=== PATIENT | female | born 2000 | race Caucasian/White ===

== ENCOUNTER 2025-01-28 14:21 | Outpatient (AMB) | payer OTHER, SELFPAY ==
--- NOTE | 2025-01-28 14:29 | MHC.PC.OV ---
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 Trader Required: No Allergies No Known Allergies Allergy (Verified 01/28/25 14:32) Medication List - Last Reconciled 01/28/25 by Annette Olsen PA-C No Known Home Meds Tobacco use date assessed: 01/28/25 Dental Screening Dental Screen Date: 01/28/25 Did you have a dental visit in the last 12 months?: Yes Did you have a dental problem in the last 6 months where you did not have access to dental care?: No Was dental information given to patient?: Patient has dentist HPI 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 She has a hx of kidney stones Uro: hx of stones around 2011. She sometimes have increased urinary frequency and urgency. No gross hematuria. HEENT: 3 days ago started with a sore throat on the right side. Lot of wants to go she was seen at [place] and was diagnosed with a ?throat infection ?. States she was told it was not struck but needed antibiotics. She says her symptoms are feeling the same. They did do a CAT scan when she was at [place]. Unfortunately, I do not have any results. We have requested records. Pysch: hx of anxiety, depression and ptsd. She was previously treated with prozac, zoloft but did not do well with these medications. 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 1. Little interest or pleasure in doing things: more than half the days 2. Feeling down, depressed, or hopeless: more than half the days 3. Trouble falling or staying asleep, or sleeping too much: more than half the days 4. Feeling tired or having little energy: several days 5. Poor appetite or overeating: several days 6. Feeling bad about yourself - or that you are a failure or have let yourself or your family down: several days 7. Trouble concentrating on things, such as reading the newspaper or watching television: several days 8. Moving or speaking so slowly that other people could have noticed. Or the opposite - being so fidgety or restless that you have been moving around a lot more than usual: several days 9. Thoughts that you would be better off or of hurting yourself in some way: not at all Total score: 11 Source: Developed by Drs. Donal Foster, Claudia Mccann, Brennen Momin and colleagues, with an educational adriana from [employer]. Thrive Questionnaire I am a: Patient What is your living situation today?: I have a steady place to live Within the past 12 months, did the food you bought not last and you didn't have the money to get more?: Never true Within the past 12 months, did you worry whether your food would run out before you got money to buy more?: Sometimes True Do you have trouble paying for medicines?: No Do you have trouble getting transportation to medical appointments?: No Do you have trouble paying your heating and electricity bill?: No Do you have trouble taking care of your child, family member or friend?: No Do you have trouble with day-to-day activities such as bathing, preparing meals, shopping, managing finances, etc.?: No Are you currently unemployed and looking for a job?: No Are you interested in more education?: Yes Please select the resources that you would like help with: None Currently or been in a relationship where the following occur: I choose not to answer THRIVE Score: 1 AUDIT C Alcohol Use Questionnaire (AUDIT-C) 1. How often do you have a drink containing alcohol?: Never Total Score: 0 HOWARD-7 AMB Questionnaire HOWARD-7 Feeling nervous, anxious, or on edge: 1 = Several days Not being able to stop or control worryin = Several days Worrying too much about different things: 1 = Several days Trouble relaxin = Several days Being so restless that it is hard to sit still: 1 = Several days Becoming easily annoyed or irritable: 1 = Several days Feeling afraid as if something awful might happen: 1 = Several days Total HOWARD-7 score (0-4 normal; 5-9 mild; 10-14 moderate; 15-21 severe): 7 Source: Developed by Drs. Donal Foster, Claudia Mccann, Brennen Momin and colleagues, with an educational adriana from [employer]. Physical exam (Primary Care) Vital Signs: Last Vital Signs Temp 98.2 F 01/28/25 14:31 Pulse 97 01/28/25 14:31 Resp 12 01/28/25 14:31 BP 90/52 L 01/28/25 14:31 Pulse Ox 98 01/28/25 14:31 Oxygen Delivery Method Room Air 01/28/25 14:31 BMI result Body Mass Index 22.3 Tobacco/Smoking Status: Tobacco use Status Tobacco use date assessed 01/28/25 01/28/25 14:39 Patient Tobacco Use Status Never used Tobacco 01/28/25 14:39 PHQ-9: PHQ-9 Score PHQ-9: Total score 11 01/28/25 14:51 Currently or been in a relationship where the following occur: I choose not to answer Const Orientation/consciousness: patient oriented x3 HENMT Other: Oral mucosa moist. There is marked erythema noted of the right posterior oropharynx. No exudates. Uvula is midline and not enlarged. Tongue is WNL. There is right cervical lymphadenopathy. Sinuses nontender. Ears: hearing grossly normal bilaterally Neck Thyroid: Thyroid normal Lymphatic: no lymphadenopathy noted Resp Auscultation: clear to auscultation bilaterally Cardio Rate: regular rate Rhythm: regular rhythm Heart sounds: S1 normal heart sound present and S2 normal heart sound present GI Inspection: Yes normal to inspection Palpation (GI): Soft to palpation and Other GI palpation findings present (nontender, no cva tenderness) Auscultation: normoactive bowel sounds Rectal Exam - Female: deferred Skin General skin exam: no rashes or lesions noted Neuro General: patient oriented x3, gait normal and no focal motor deficits Coding Level of Care Code New Pt Level 3 (22799) Complex EM visit Add On G2211 Diagnoses Anxiety with depression F41.8 Post traumatic stress disorder (PTSD) F43.10 Renal stones N20.0 Sore throat J02.9 Assessment & Plan Assessment & Plan (1) Anxiety with depression: Code(s): F41.8 - Other specified anxiety disorders Category: Medical Plan: We will start Lexapro. Discussed risks and benefits and adverse effects of the medication. Short term follow up. Sooner if needed (2) Post traumatic stress disorder (PTSD): Code(s): F43.10 - Post-traumatic stress disorder, unspecified Category: Medical Plan: As above (3) Renal stones: Code(s): N20.0 - Calculus of kidney Category: Medical Plan: Renal ultrasound ordered labs and urine ordered (4) Sore throat: Code(s): J02.9 - Acute pharyngitis, unspecified Plan: Recently treated with amoxicillin but felt that the symptoms returned a week later. Never change her toothbrush. Her throat responded to the antibiotics in the ER rapidly. Rapid strep negative today. I will start her on Augmentin. Advised to discard foods fresh. Short term follow up. Sooner if needed. Patient understands and agrees with the plan. Orders: Orders Complete Blood Count Auto Diff 01/28/25 F41.8 - Other specified anxiety disorders, F43.10 - Post-traumatic stress disorder, unspecified, N20.0 - Calculus of kidney, Z00.00 - Encounter for general adult medical examination without abnormal findings Comprehensive Met. Panel 01/28/25 F41.8 - Other specified anxiety disorders, F43.10 - Post-traumatic stress disorder, unspecified, N20.0 - Calculus of kidney, Z00.00 - Encounter for general adult medical examination without abnormal findings TSH reflex Free T4 01/28/25 F41.8 - Other specified anxiety disorders, F43.10 - Post-traumatic stress disorder, unspecified, N20.0 - Calculus of kidney, Z00.00 - Encounter for general adult medical examination without abnormal findings UA CC w/rflx Micro + Cult 01/28/25 F41.8 - Other specified anxiety disorders, F43.10 - Post-traumatic stress disorder, unspecified, N20.0 - Calculus of kidney, R30.0 - Dysuria, Z00.00 - Encounter for general adult medical examination without abnormal findings Microalbumin, Random (w Creat) 01/28/25 F41.8 - Other specified anxiety disorders, F43.10 - Post-traumatic stress disorder, unspecified, N20.0 - Calculus of kidney, Z00.00 - Encounter for general adult medical examination without abnormal findings US renal BI 01/28/25 F41.8 - Other specified anxiety disorders, F43.10 - Post-traumatic stress disorder, unspecified, N20.0 - Calculus of kidney, Z00.00 - Encounter for general adult medical examination without abnormal findings Lipid Panel 01/28/25 F41.8 - Other specified anxiety disorders, F43.10 - Post-traumatic stress disorder, unspecified, N20.0 - Calculus of kidney, Z00.00 - Encounter for general adult medical examination without abnormal findings Referrals DISTRICT SALES REPRESENTATIVE Referral Z01.419 - Encounter for gynecological examination (general) (routine) without abnormal findings Psychiatry Referral F41.8 - Other specified anxiety disorders, F43.10 - Post-traumatic stress disorder, unspecified Medications: New escitalopram oxalate (Lexapro) 5 mg PO DAILY 90 tabs 0RF amoxicillin-pot clavulanate 875-125 mg 1 tab PO Q12H 20 tabs 0RF
[2025-01-28 14:31] VITALS: BP 90/52; PULSE 97; RESP 12; TEMP 36.8; O2SAT 98; BMI 22.3
--- OUTSIDE RECORDS SUMMARY | 2025-01-28 16:41 | XMS_ITS | Clinical Summary ---
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 Name Role Phone Unavailable Primary Care Provider Unavailabl e Social History Tobacco Use Types Packs/Day Years Used Date Smoking Tobacco: Never Assessed Comments Unknown Sex and Gender Information Value Date Recorded Sex Assigned at Not on file Legal Sex Female 9:48 PM EST Gender Identity Not on file Sexual Orientation Not on file Plan of Treatment Health Maintenance Due Date Last Done Comments HPV Vaccines (1 - 3-dose series) 2013 DTaP,Tdap,and Td Vaccines (1 - Tdap) 2017 Hepatitis B Vaccines (1 of 3 - 19+ 3-dose series) 2017 Cervical Cancer Screening: P ap Smear 09/27/2019 Depression Screening 05/28/2024 COVID-19 Vaccine ( - 2023-2 5 season) 2025 Influenza Vaccine (#1) 2025 HIB Vaccines Aged Out No longer eligi ble based on patient's age to complete this topic Hepatitis A Vaccines Aged Out No long er eligible based on patient's age to complete this topic IPV Vaccines Aged Out No longer eligi ble based on patient's age to complete this topic MMR Vaccines Aged Out No longer eligi ble based on patient's age to complete this topic Meningococcal ACWY Vaccine Aged Out N o longer eligible based on patient's age to complete this topic Meningococcal B Vaccine Aged Out No l onger eligible based on patient's age to complete this topic Pneumococcal Vaccine: Pediat rics (0 to 5 Years) and At-Risk Patients (6 to 49 Years) Aged Out No longer eligible b ased on patient's age to complete this topic RSV Immunization Patients Un praveena 20 months Aged Out No longer eligible b ased on patient's age to complete this topic Varicella Vaccines Aged Out No longer eligible based on patient's age to complete this topic
== END 2025-01-28 15:20 | disposition home or self-care (01) ==
LOC: HO.HMCFM 14:22
PROVIDERS: PCP Physician Assistant; Visit Provider Physician Assistant
DX: F41.8 Other specified anxiety disorders (principal); F43.10 Post-traumatic stress disorder, unspecified; N20.0 Calculus of kidney; J02.9 Acute pharyngitis, unspecified

== ENCOUNTER 2025-01-28 14:21 | Outpatient (REF) | payer OTHER, SELFPAY ==
[2025-01-28 17:37] LABS: MANUAL DIFF FLAG NO
[2025-01-28 18:04] LABS: Hematocrit 34.1 % (37.0-47.0); Hemoglobin 11.3 g/dl (12.0-16.0); Imm Gran Abs Auto 0.05 X10*3/uL (0.00-0.03); Imm Gran Pct Auto 0.5 % (0.0-0.4); Lymphocytes Absolute Auto 1.2 X10*3/uL (1.2-4.9); Mean Corpuscular HGB Conc 33.1 g/dl (31.0-35.0); Mean Corpuscular Hemoglobin 31.0 pg (27.0-33.0); Mean Corpuscular Volume 93.7 fL (80.0-98.0); NRBC Abs Auto 0.000 X10*3/uL (0.0-0.012); NRBC Pct Auto 0.0 /100WBC (0.0-0.2); Platelet Count 223 X10*3/uL (160-400); Red Blood Count 3.64 X10*6/uL (4.20-5.50); White Blood Count 10.9 X10*3/uL (4.8-10.8)
[2025-01-28 18:07] LABS: Microalbum/Creatinine Ratio Ur 18.8 ug/mg cr (<30)
[2025-01-28 18:12] LABS: Appearance Urine Turbid; Glucose Urine UA Negative (Negative); PH 5.5 (5.0-9.0); Specific Gravity - Urine >= 1.030 (1.005-1.025); UMIC TRIGGER UACC YES
[2025-01-28 18:27] LABS: Alanine Aminotransferase 14 U/L (0-31); Albumin Level 4.6 g/dL (3.5-5.0); Alkaline Phosphatase 68 U/L (39-117); Anion Gap 11 (12-20); Aspartate Amino Transferase 21 U/L (5-31); Blood Urea Nitrogen 12 mg/dL (9-16); Calcium 8.9 mg/dL (8.4-10.2); Carbon Dioxide 25 mmol/L (22-29); Chloride 108 mmol/L (96-108); Cholesterol 130 mg/dL (<200); Estimated Glomerular Filt Rate > 60; HDL Cholesterol 56 mg/dL (>40); Potassium 3.9 mmol/L (3.3-5.1); Sodium 140 mmol/L (135-145); Total Protein 7.0 g/dL (6.5-8.0); Triglycerides 67 mg/dL (<150)
== END 2025-01-28 14:22 | disposition home or self-care (01) ==
LOC: HO.WFDLDS 14:21
PROVIDERS: PCP Physician Assistant; Visit Provider Physician Assistant
DX: Z00.00 Encounter for general adult medical examination without abnormal findings (principal); F41.8 Other specified anxiety disorders; F43.10 Post-traumatic stress disorder, unspecified; N20.0 Calculus of kidney; J02.9 Acute pharyngitis, unspecified; R30.0 Dysuria
CPT/HCPCS: 36415; 80053; 80061; 81001; 82043; 82570; 84443; 85025

== ENCOUNTER 2025-02-18 09:32 | Outpatient (AMB) | payer OTHER, SELFPAY ==
--- NOTE | 2025-02-18 09:40 | MHC.PC.OV ---
Vital Signs 02/18/25 09:43 Height 4 ft 10.46 in Weight 106 lb 6 oz BMI 21.9 BP 90/58 L Blood Pressure Location Rt brachial Position Sitting Respiration 12 Pulse 71 Pulse Source Pulse Oximeter Pulse Oximetry (%) 99 Oxygen Delivery Method Room Air Intake Visit Reasons: 3-4 weeks Intake Note: Follow up. Wants to talk about coming of Zoloft. Has been grinding teeth since starting, and is not working. Ex Chef Required: No Allergies No Known Allergies Allergy (Verified 02/18/25 09:40) Medication List - Last Reconciled 02/18/25 by Annette Olsen PA-C escitalopram oxalate (Lexapro) 5 mg PO DAILY Tobacco use date assessed: 02/18/25 Dental Screening Dental Screen Date: 01/28/25 HPI 3-4 weeks HPI Details Pt is a 24 y/o female who presents today for a follow up. Uro: hx of stones around 2011. She sometimes have increased urinary frequency and urgency. No gross hematuria. She is scheduled for an ultrasound in February HEENT: She states that her throat is a lot better from our last visit and that she completed the antibiotics but she still has some degree of tenderness to the left cervical chain. She is still gets some discomfort with swallowing at times. It has been persistent for about 8 weeks. When I 1st saw her she did go to [place] initially when this started and did have a CT of the neck which I do not have the results of. She states that they were making sure she did not have an abscess and they did put her on antibiotics. No difficulty swallowing. She says it feels more like a normal sore throat with some degree of tenderness. Pysch: hx of anxiety, depression and ptsd. She is wondering if she can try the Zoloft again. She did try this in the past but states that she did not give it a fair shot. She states that she was drinking heavily when she tried the Zoloft and she wonders if this would be better for her than Lexapro as she has been diagnosed with PTSD along with anxiety and depression. She was previously treated with prozac, zoloft but did not do well with these medications. 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 She states that for about a year she was drinking heavily but not every day. Her aunt is a speaker at and helped her may cause these changes. She is feeling well and follows with a therapist. Derm: Does report an ingrown left great toenail. It has been a problem for the last few years. 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 She would like to see a rocket engine mechanic. No infection. Recently had a pedicure. GI: She is requesting gluten testing because when she eats a lot of glue and sometimes it bothers her stomach and causes some gas and bloating. When she avoids gluten she does not have these symptoms. She does not want to see GI but wants to just get blood work. 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 [employer] Current occupational exposures/hazards: No Cognitive needs: No Hearing needs: No Vision needs: Yes Questionnaire Thrive Questionnaire Date Thrive assessed: 01/28/25 I am a: Patient What is your living situation today?: I have a steady place to live Within the past 12 months, did the food you bought not last and you didn't have the money to get more?: Never true Within the past 12 months, did you worry whether your food would run out before you got money to buy more?: Sometimes True Do you have trouble paying for medicines?: No Do you have trouble getting transportation to medical appointments?: No Do you have trouble paying your heating and electricity bill?: No Do you have trouble taking care of your child, family member or friend?: No Do you have trouble with day-to-day activities such as bathing, preparing meals, shopping, managing finances, etc.?: No Are you currently unemployed and looking for a job?: No Are you interested in more education?: Yes Please select the resources that you would like help with: None Currently or been in a relationship where the following occur: I choose not to answer THRIVE Score: 1 AUDIT C Alcohol Use Questionnaire (AUDIT-C) 3. How often do you have six or more drinks on one occasion?: Never Total Score: 0 Physical exam (Primary Care) Vital Signs: Last Vital Signs Pulse 71 02/18/25 09:43 Resp 12 02/18/25 09:43 BP 90/58 L 02/18/25 09:43 Pulse Ox 99 02/18/25 09:43 Oxygen Delivery Method Room Air 02/18/25 09:43 BMI result Body Mass Index 21.9 Tobacco/Smoking Status: Tobacco use Status Tobacco use date assessed 02/18/25 02/18/25 09:45 Patient Tobacco Use Status Never used Tobacco 02/18/25 09:45 Thrive Assessment: Date of Thrive Assessment Date Thrive assessed 01/28/25 02/18/25 09:45 Currently or been in a relationship where the following occur: I choose not to answer Const Orientation/consciousness: patient oriented x3 HENMT Ears: hearing grossly normal bilaterally Face and sinus: Yes sinuses nontender Mouth: Normal oral and palatal mucosa present Throat: Yes posterior oropharynx normal and Yes uvula midline Neck Thyroid: Thyroid normal Lymphatic: lymphadenopathy (shotty cervical lymphadenopathy noted) Resp Auscultation: clear to auscultation bilaterally Cardio Rate: regular rate Rhythm: regular rhythm Heart sounds: S1 normal heart sound present and S2 normal heart sound present GI Inspection: Yes normal to inspection Palpation (GI): Soft to palpation and Other GI palpation findings present (nontender, no cva tenderness) Auscultation: normoactive bowel sounds Rectal Exam - Female: deferred Skin General skin exam: no rashes or lesions noted Neuro General: patient oriented x3, gait normal and no focal motor deficits Coding Level of Care Code Est Pt Level 4 (62852) Complex EM visit Add On G2211 Diagnoses Pharyngitis J02.9 Cervical lymphadenopathy R59.0 Ingrown toenail of left foot L60.0 GSE (gluten-sensitive enteropathy) K90.41 Anxiety with depression F41.8 Assessment & Plan Assessment & Plan (1) Pharyngitis: Code(s): J02.9 - Acute pharyngitis, unspecified Category: Medical Plan: We will try an antihistamine Referral to ENT Ultrasound ordered. Labs ordered (2) Cervical lymphadenopathy: Code(s): R59.0 - Localized enlarged lymph nodes Category: Medical Plan: As above (3) Ingrown toenail of left foot: Code(s): L60.0 - Ingrowing nail Category: Medical Plan: Referral to podiatry (4) GSE (gluten-sensitive enteropathy): Code(s): K90.41 - Non-celiac gluten sensitivity Category: Medical Plan: Labs ordered. Offered referral to GI but declines we will try to be gluten free for the next 4-6 weeks. (5) Anxiety with depression: Code(s): F41.8 - Other specified anxiety disorders Category: Medical Plan: We will treat with Zoloft. Discussed risks and benefits and adverse effects of this medication. Short term follow up in 4-6 weeks. Sooner if needed. Orders: Orders US soft tiss head and/or neck Today R59.0 - Localized enlarged lymph nodes Transglutaminase Ab IgG Today K90.41 - Non-celiac gluten sensitivity Endomysial IgA rflx Titer Today K90.41 - Non-celiac gluten sensitivity Immunoglobulin A Today K90.41 - Non-celiac gluten sensitivity Referrals Ear/Nose/Throat Referral J02.9 - Acute pharyngitis, unspecified Podiatry Referral L60.0 - Ingrowing nail Medications: New sertraline (Zoloft) 25 mg PO DAILY 90 tabs 0RF cetirizine (Zyrtec) 10 mg PO DAILY 30 tabs 0RF Discontinued escitalopram oxalate (Lexapro) Discontinued Reason: Doctor's Order 5 mg PO DAILY 90 tabs 0RF
[2025-02-18 09:43] VITALS: BP 90/58; PULSE 71; RESP 12; O2SAT 99; BMI 21.9
--- OUTSIDE RECORDS SUMMARY | 2025-02-18 11:25 | XMS_ITS | Clinical Summary ---
Author Organization [facility] ity Address [address] [place] [address] Care Team Providers Care Consumer Relations Complaint Clerk Name Role Phone Unavailable Primary Care Provider [...]
== END 2025-02-18 10:15 | disposition home or self-care (01) ==
LOC: HO.HMCFM 09:33
PROVIDERS: PCP Physician Assistant; Visit Provider Physician Assistant
DX: J02.9 Acute pharyngitis, unspecified (principal); R59.0 Localized enlarged lymph nodes; L60.0 Ingrowing nail; K90.41 Non-celiac gluten sensitivity; F41.8 Other specified anxiety disorders

== ENCOUNTER 2025-03-11 09:39 | Outpatient (AMB) | payer OTHER, SELFPAY ==
[2025-03-11 09:47] VITALS: BMI 22.2
--- NOTE | 2025-03-11 09:47 | MHC.OFFVIS ---
Vital Signs 03/11/25 09:47 Height 4 ft 11 in Weight 110 lb BMI 22.2 Intake Visit Reasons: ingrown nail Intake Note: Zakia is a 24 year old female who presents to the office today as a new patient referred by her PCP Annette Olsen for an ingrown toenail of her left foot. Pt states the ingrown is located on the medial border of her left hallux. she has had this for about 2 years and she has not tried any treatment for the ingrown. Allergies No Known Allergies Allergy (Verified 03/11/25 09:48) HPI Comments Details: The patient is a 24-year-old female with a PMH as seen below presenting with concerns about an ingrown toenail medial border left hallux. The issue began approximately 2 years ago where intermittently the nail started digging into the skin, causing significant discomfort. In response, the patient attempted to self-treat by removing the painful parts of the nail. She inquires today about the appearance of the nail growth and if there are any abnormalities. The patient reported no purulence or bleeding during the process, although there was a temporary change in nail color to a darker shade, which has since improved. The patient managed the condition by soaking the toe in warm water with Epsom salt, which alleviated the symptoms. She states she experienced pain initially at the time of the partial removal of the nail and kept it bandaged which assisted in pain relief. She denies any other pedal concerns. Denies any N/V/F/C. 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 - Integumentary: Reports temporary dark discoloration of the nail, now resolved. Reports ingrowing of nail, but after at-home treatment, pain has resolved. All systems reviewed & are unremarkable except as noted in HPI and below Physical Exam Vital Signs: BMI result Body Mass Index 22.2 Extrem Other: LLE Focused Physical Exam: Derm: Healed site of at-home PNA medial border of hallux with growth of the nail border noted. No incurvation noted. No edema, erythema, purulence, or drainage noted. No clinical signs of infection. Remaining nails WNL. Skin supple and turgor WNL. Vasc: DP/PT pulses palpable. CFT < 3 secs. Temp gradient warm to warm. Pedal hair present. No varicosities noted. Neuro: Protective sensations grossly intact. MSK: No pain on palpation to the left hallux along the medial nail border. No fluctuance noted. ROM of the forefoot, hindfoot, and ankle WNL. Nonantalgic unassisted gait noted. Results Reviewed Results Reviewed: Laboratory Tests 01/28/25 15:32 WBC 10.9 H Assessment & Plan Assessment & Plan (1) Nail dystrophy: Code(s): L60.3 - Nail dystrophy Category: Medical (2) Nail disorder: Code(s): L60.9 - Nail disorder, unspecified Category: Medical (3) Ingrowing nail, left great toe: Code(s): L60.0 - Ingrowing nail Category: Medical Plan Patient was informed and verbally consented to the use of an ambient scribe for clinic note documentation during this visit. I discussed with the patient that the ingrown toenail appears to be healing well and that her self-care measures were appropriate. I advised her on proper nail care techniques to prevent recurrence and emphasized the importance of monitoring for signs of infection. - Continue monitoring the nail growth and ensure proper nail care to prevent recurrence of ingrown nail. - Advised soaking the toe in warm water with Epsom salt if discomfort arises. - File the nail edges to prevent them from digging into the skin. - Return for evaluation if signs of infection such as redness, pus, or increased pain occur. - Advised patient to wear supportive shoe gear with a wide toe box and avoid ill-fitting shoes. RTC as needed. Coding Level of Care Code New Pt Level 3 (10534) Diagnoses Nail dystrophy L60.3 Nail disorder L60.9 Ingrowing nail, left great toe L60.0 Time Spent (min) 35
--- OUTSIDE RECORDS SUMMARY | 2025-03-11 11:04 | XMS_ITS | Clinical Summary ---
Author Organization [facility] ity Address [address] [place] [address] Care Team Providers Care Dx Board Operator Name Role Phone Unavailable Primary Care Provider [...] 5 season) 2025 Influenza Vaccine (#1) 2025 RSV Immunization Adult Patie nts (1 - 1-dose 75+ series) 2073 HIB Vaccines Aged Out No longer eligi [...]
== END 2025-03-11 10:03 | disposition home or self-care (01) ==
LOC: HO.HPODS 09:40
PROVIDERS: PCP Physician Assistant; Visit Provider Student in an Organized Health Care Education/Training Program
DX: L60.3 Nail dystrophy (principal); L60.9 Nail disorder, unspecified; L60.0 Ingrowing nail
CPT/HCPCS: 99203

== ENCOUNTER 2025-03-17 11:32 | Outpatient (REF) | payer OTHER, SELFPAY ==
--- NOTE | ~2025-03-17 | US_ITS ---
CLINICAL HISTORY: N20.0 - Calculus of kidney US kidneys Comparison: None Findings: Right kidney normal size and echotexture, 9.2 cm length. No hydronephrosis. Normal color flow. A shadowing appearing upper pole echogenic focus measuring up to 9 mm suggest nonobstructing calculus. Left kidney normal size and echotexture, 9.3 cm length. No hydronephrosis. Normal color flow. Impression: 1. No likely nonobstructing calculus on the right. Otherwise, unremarkable mal kidneys This document has been electronically signed by: Morgan Bergman MD on 03/18/2025 19:29:20
== END 2025-03-17 11:33 | disposition home or self-care (01) ==
LOC: HO.HMGCX 11:32
PROVIDERS: PCP Physician Assistant; Visit Provider Physician Assistant
DX: N20.0 Calculus of kidney (principal)
CPT/HCPCS: 76775

== ENCOUNTER → 2025-03-17 11:34 | Outpatient (BNV) | payer OTHER, SELFPAY | PROVIDERS: PCP Physician Assistant; Visit Provider Radiology Diagnostic Radiology | DX: N20.0 Calculus of kidney (principal) | CPT/HCPCS: 76775 ==

== ENCOUNTER 2025-04-08 09:01 | Outpatient (REF) | payer OTHER, SELFPAY ==
--- NOTE | ~2025-04-08 | US_ITS ---
EXAMINATION: US SOFT TISSUE HEAD AND NECK CLINICAL INFORMATION: Left neck tenderness. Lymphadenopathy. COMPARISON: None available. TECHNIQUE: Linear transducer guerra-scale and color Doppler examination with attention to the region of the soft tissues of the left neck in the area of tenderness, level 2. FINDINGS: No solid or cystic soft tissue mass or fluid collection seen. There are no enlarged lymph nodes. There is a normal appearing left level 2 lymph node measuring 1.2 x 0.5 x 1.2 cm. This is normal in size. This demonstrates normal ultrasound morphology and flow. US/US soft tiss head and/or neck IMPRESSION: No abnormality seen by ultrasound. Normal-appearing left level 2 lymph node. Electronically signed by: Jamila Nguyen MD 04/08/2025 09:48 AM FAISAL
--- OUTSIDE RECORDS SUMMARY | 2025-04-08 09:40 | XMS_ITS | Clinical Summary ---
Author Organization [facility] ity Address [address] [place] [address] Care Team Providers Care Supervisor Phosphorus Processing Name Role Phone Unavailable Primary Care Provider [...] Smear 09/27/2019 Depression Screening 05/28/2024 COVID-19 Vaccine (1 - 2024-2 6 season) 2025 Influenza Vaccine (#1) 2025 RSV [...]
== END 2025-04-08 09:02 | disposition home or self-care (01) ==
LOC: HO.HMGCX 09:01
PROVIDERS: PCP Physician Assistant; Visit Provider Physician Assistant
DX: Z23 Encounter for immunization (principal); R59.0 Localized enlarged lymph nodes; F41.8 Other specified anxiety disorders; N20.0 Calculus of kidney
CPT/HCPCS: 76536; 90471; 90656

== ENCOUNTER → 2025-04-08 09:06 | Outpatient (BNV) | payer OTHER, SELFPAY | PROVIDERS: PCP Physician Assistant; Visit Provider Radiology Diagnostic Radiology | DX: R59.0 Localized enlarged lymph nodes (principal) | CPT/HCPCS: 76536 ==

== ENCOUNTER 2025-04-08 14:55 | Outpatient (AMB) | payer OTHER, SELFPAY ==
[2025-04-08 15:07] VITALS: BP 92/54; PULSE 79; RESP 12; TEMP 37.1; O2SAT 99; BMI 22.2
--- NOTE | 2025-04-08 15:07 | MHC.PC.OV ---
Vital Signs 04/08/25 15:07 Height 4 ft 11 in Weight 110 lb BMI 22.2 BP 92/54 L Blood Pressure Location Lt brachial Position Sitting Respiration 12 Pulse 79 Pulse Source Pulse Oximeter Temp 98.7 F Temp Source Oral Pulse Oximetry (%) 99 Oxygen Delivery Method Room Air Intake Visit Reasons: med check, gi sx Allergies No Known Allergies Allergy (Verified 03/11/25 09:48) Tobacco use date assessed: 02/18/25 Dental Screening Dental Screen Date: 01/28/25 HPI med check, gi sx HPI Details Pt is a 24 y/o female who presents today for a follow up. She states since our last visit she is doing very well. Uro: hx of stones and was referred to urology and scheduled 05/15. HEENT: She states that her throat is a lot better from our last visit and back to normal. Had a recent neck ultrasound today which was normal. Denies any swelling. States that she is overall feeling great. Pysch: hx of anxiety, depression and ptsd. She is following with a psychiatrist. She is back on zoloft and doing well. 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 She states that for about a year she was drinking heavily but not every day. Her aunt is a speaker at and helped her may cause these changes. She is feeling well and follows with a therapist. GI: At our last visit she requested gluten testing because when she eats a lot of gluten and sometimes it bothers her stomach and causes some gas and bloating. When she avoids gluten she does not have these symptoms. She does not want to see GI but wants to just get blood work. She is aware that the gold standard is a colonoscopy. 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 [employer] Current occupational exposures/hazards: No Cognitive needs: No Hearing needs: No Vision needs: Yes Questionnaire Thrive Questionnaire Date Thrive assessed: 01/28/25 I am a: Patient What is your living situation today?: I have a steady place to live Within the past 12 months, did the food you bought not last and you didn't have the money to get more?: Never true Within the past 12 months, did you worry whether your food would run out before you got money to buy more?: Sometimes True Do you have trouble paying for medicines?: No Do you have trouble getting transportation to medical appointments?: No Do you have trouble paying your heating and electricity bill?: No Do you have trouble taking care of your child, family member or friend?: No Do you have trouble with day-to-day activities such as bathing, preparing meals, shopping, managing finances, etc.?: No Are you currently unemployed and looking for a job?: No Are you interested in more education?: Yes Please select the resources that you would like help with: None Currently or been in a relationship where the following occur: I choose not to answer THRIVE Score: 1 Physical exam (Primary Care) Vital Signs: Last Vital Signs Temp 98.7 F 04/08/25 15:07 Pulse 79 04/08/25 15:07 Resp 12 04/08/25 15:07 BP 92/54 L 04/08/25 15:07 Pulse Ox 99 04/08/25 15:07 Oxygen Delivery Method Room Air 04/08/25 15:07 BMI result Body Mass Index 22.2 Tobacco/Smoking Status: Tobacco use Status Tobacco use date assessed 02/18/25 04/08/25 15:10 Patient Tobacco Use Status Never used Tobacco 04/08/25 15:10 Thrive Assessment: Date of Thrive Assessment Date Thrive assessed 01/28/25 04/08/25 15:10 Currently or been in a relationship where the following occur: I choose not to answer Const Orientation/consciousness: patient oriented x3 HENMT Ears: hearing grossly normal bilaterally Neck Thyroid: Thyroid normal Lymphatic: no lymphadenopathy noted Resp Auscultation: clear to auscultation bilaterally Cardio Rate: regular rate Rhythm: regular rhythm Heart sounds: S1 normal heart sound present and S2 normal heart sound present GI Inspection: Yes normal to inspection Palpation (GI): Soft to palpation and Other GI palpation findings present (nontender, no cva tenderness) Auscultation: normoactive bowel sounds Rectal Exam - Female: deferred Skin General skin exam: no rashes or lesions noted Neuro General: patient oriented x3, gait normal and no focal motor deficits Office Procedures Flu Questionnaire Does the patient have a severe egg allergy?: No Does the patient have severe life threatening allergies?: No Does the patient have a fever or illness today?: No Has the patient ever had Guillain-[place] Syndrome?: No Has the patient ever had any past reaction to a flu shot?: No Immunizations Fluarix [id number] (PF) 45 mcg (15 mcg x 3)/0.5 mL IM syringe Performing Provider: Annette Olsen PA-C Performing Location: [facility] Administered by: Jacey Blank CMA on 04/09/25 08:47 Dose Route Admin Location Dispensed Lot Number Expiration Date NDC Logistics Management Specialist 0.5 mL IM Left Deltoid 0.5 mL [id number] 11/24/25 50141-725-39 [employer] VIS Given Date VIS Provided VIS Publication Date 04/08/25 Single Vaccine 24 Eligibility Eligibility Date Funding Source Not [facility] Eligible 04/09/25 Private Results Reviewed Results Reviewed: Laboratory Tests 01/28/25 15:32 WBC 10.9 H RBC 3.64 L Hgb 11.3 L Hct 34.1 L Plt Count 223 Sodium 140 Potassium 3.9 Chloride 108 Carbon Dioxide 25 Anion Gap 11 L BUN 12 Creatinine 0.86 Estimated GFR > 60 Random Glucose 97 Calcium 8.9 AST 21 ALT 14 Triglycerides 67 Cholesterol 130 LDL Cholesterol, Calc 61 HDL Cholesterol 56 TSH 0.37 US/US soft tiss head and/or neck IMPRESSION: No abnormality seen by ultrasound. Normal-appearing left level 2 lymph node. Findings: Right kidney normal size and echotexture, 9.2 cm length. No hydronephrosis. Normal color flow. A shadowing appearing upper pole echogenic focus measuring up to 9 mm suggest nonobstructing calculus. Left kidney normal size and echotexture, 9.3 cm length. No hydronephrosis. Normal color flow. Impression: 1. No likely nonobstructing calculus on the right. Otherwise, unremarkable mal kidneys Coding Level of Care Code Est Pt Level 4 (23896) Complex EM visit Add On G2211 Diagnoses Anxiety with depression F41.8 Renal stones N20.0 Cervical lymphadenopathy R59.0 Assessment & Plan Assessment & Plan (1) Anxiety with depression: Code(s): F41.8 - Other specified anxiety disorders Category: Medical Plan: Doing well with Zoloft and following with her psychiatrist. Recently increased dose to 50 mg which appears to be effective (2) Renal stones: Code(s): N20.0 - Calculus of kidney Category: Medical Plan: Has an appointment with Urology. No flank pain or blood in the urine (3) Cervical lymphadenopathy: Code(s): R59.0 - Localized enlarged lymph nodes Category: Medical Plan: Resolved. Ultrasound reassuring Plan Flu shot today Orders: Orders Influenza [id number] Immunization 04/08/25 Z23 - Encounter for immunization
--- OUTSIDE RECORDS SUMMARY | 2025-04-08 18:17 | XMS_ITS | Clinical Summary ---
Author Organization [facility] ity Address [address] [place] [address] Care Team Providers Care Flat Surfacer Jewel Name Role Phone Unavailable Primary Care Provider [...]
--- OUTSIDE RECORDS SUMMARY | 2025-04-08 18:17 | XMS_ITS | Data Portability ---
Author Organization [place] - [facility], [facility] Address [address] [place] [address] Assessment Encounter Date Assessment Date Assessment LastModified by Organization Details LastModified Time 11/29/2017 11/29/2017 dysuria- will send urine to lab to ro infection jyunis Not available 11/29/2017 13:33:12 12/03/2017 12/03/2017 Dysuria - +urine dip partially c/w UTI but has vaginitis as well, sent u/a and urine cx, neg Urine GC/Chlam few days ago so not repeated, hydration/cranb erry juice, do not hold urine, post coital voiding discussed, call pt cell regardless, f/u prn; Vaginitis - appears Candidal, sent affirm, Diflucan x 3 d, Monistat 3, f/u prn, preventitive measures; Urinary frequency - has been drinking more water lately, no enuresis or need to get up overnight to urinate, U HCG neg, using condoms discussed, reassured cristina Not available 12/03/2017 13:34:48 03/26/2018 03/26/2018 Fatigue/Muscle and jt Pains/Wt Loss (but did regain with inc calories)/Irreg Menses/Hair loss - very concerning sxs overall, broad differential, has become vegetarian and not taking mvit so instructed to do so immediately, as well as Ca supplement with vit D since has progestin IUD in place, will do screening labs for hormonal causes/metaboli c causes/thyroid/ anemia/Lyme/rhe um causes, call pt with results; Sadness - not full depression but depressive mood, discussed that this may be playing role in her sxs, to find new therapist and in [place] area so will look there, no SI/HI, in homosexual relationship and has good supports with partner, family aware but not as supportive as pt would like which is one reason why she is sad, support given, f/u prn; [employer] - irreg menses, likely all tied to above, however has progestin IUD in place that may be etiology for some of her sxs and pt may need to have this removed, will get lab results first before recommending this kcamera Not available 03/26/2018 15:18:20 12/25/2018 12/25/2018 PI - in and Buttock areas, diffuse, Medrol dose pack as directed, avoidance, f/u prn; Fatigue/numbnes s/weakness/abd pain - intermittent sxs for months, discussed that likely all related to stress, just started seeing therapist Jacey so will continue, discussed options for finding psych provider via psychology today/[facility]/Murali Ayala, focusing on taking care of herself - eating well/sleeping well/exercising regularly, dec stress in her life, finding goal and making plan to get there, f/u 6 wks, also needs to schedule [facility] since very overdue kcamera Not available 12/25/2018 14:18:43 Plan of Treatment Reminders Order Date Submit Date Provider Last Modified By Organization Details Last Modified Time Details Appointments None recorded . Lab dhea-sul fate, serum 2017 018 ASTRID [facility] (Centralized Electronic Ordering - All Locations), Patient Can Go To The Location Of Their Choice, 8 00:12:37 testoste maximo free, serum 2017 018 ASTRID [facility] (Centralized Electronic Ordering - All Locations), Patient Can Go To The Location Of Their Choice, 8 09:45:56 CBC w/ auto diff 2017 018 ASTRID [facility] (Centralized Electronic Ordering - All Locations), Patient Can Go To The Location Of Their Choice, 8 20:58:03 ESR (erythro cyte sediment ation rate), blood 2017 ASTRID [facility] (Centralized Electronic Ordering - All Locations), Patient Can Go To The Location Of Their Choice, 21:48:08 tissue transglu taminase iga Ab, serum 2017 ASTRID [facility] (Centralized Electronic Ordering - All Locations), Patient Can Go To The Location Of Their Choice, 10:55:51 ferritin , serum or plasma 2017 ASTRID [facility] (Centralized Electronic Ordering - All Locations), Patient Can Go To The Location Of Their Choice, 23:37:37 TSH + free T4, serum 2017 [email or web address] [facility] (Centralized Electronic Ordering - All Locations), Patient Can Go To The Location Of Their Choice, 10:20:19 CMP, serum or plasma 2017 ASTRID [facility] (Centralized Electronic Ordering - All Locations), Patient Can Go To The Location Of Their Choice, 00:37:54 pregnanc y test, urine 2017 [facility], [address] [place] [address], [id number], 14:19:09 urinalys is, complete 2017 ASTRID [facility] (Centralized Electronic Ordering - All Locations), Patient Can Go To The Location Of Their Choice, 04:16:43 lh + FSH, serum 2017 [email or web address] [facility] (Centralized Electronic Ordering - All Locations), Patient Can Go To The Location Of Their Choice, 09:13:41 prealbum in, serum 2017 ASTRID [facility] (Centralized Electronic Ordering - All Locations), Patient Can Go To The Location Of Their Choice, 00:37:55 urinalys is, dipstick 2017 [facility], [address] [place] [address], [phone], 8 14:19:09 vitamin D, 25-hydro xy, total, serum 2017 018 ASTRID [facility] (Centralized Electronic Ordering - All Locations), Patient Can Go To The Location Of Their Choice, 8 23:44:11 vitamin D, 1,25-dih ydroxy, serum 2017 018 vick [facility] (Centralized Electronic Ordering - All Locations), Patient Can Go To The Location Of Their Choice, 8 10:21:47 borrelia burgdorf caesar C6 Ab, QL, serum 2017 018 ASTRID [facility] (Centralized Electronic Ordering - All Locations), Patient Can Go To The Location Of Their Choice, 8 09:37:21 rf (rheumat oid factor), serum 2017 018 ASTRID [facility] (Centralized Electronic Ordering - All Locations), Patient Can Go To The Location Of Their Choice, 8 23:59:44 CÉSAR (antinuc lear antibodi es) screen, serum 2017 018 ASTRID [facility] (Centralized Electronic Ordering - All Locations), Patient Can Go To The Location Of Their Choice, 8 07:40:40 urinalys is, dipstick [address] [facility], [address] [place] [address], [place], [address], 8 13:18:25 culture, urine 2017 018 ASTRID [facility] (Centralized Electronic Ordering - All Locations), Patient Can Go To The Location Of Their Choice, 8 07:22:47 urinalys is, complete 2017 018 ASTRID [facility] (Centralized Electronic Ordering - All Locations), Patient Can Go To The Location Of Their Choice, 8 15:06:49 pregnanc y test, urine 2017 018 [facility], [address] [place] [address], [phone], 8 13:20:12 bacteria l vaginosi s + vaginiti s panel, vaginal 2017 018 moni [facility] (Centralized Electronic Ordering - All Locations), Patient Can Go To The Location Of Their Choice, [id number] 8 13:01:08 urinalys is, dipstick 2017 018 [facility], [address] [place] [address], [phone], 8 13:22:54 culture, urine 2017 018 LOUVALE [facility] (Centralized Electronic Ordering - All Locations), Patient Can Go To The Location Of Their Choice, [id number] 8 08:05:44 CT + NG DNA, PCR, urine 2017 018 [facility], [address] [place] [address], [phone], 8 16:14:27 urinalys is, complete 2017 018 [place] [facility] (Centralized Electronic Ordering - All Locations), Patient Can Go To The Location Of Their Choice, [id number] 8 01:57:25 Referral None recorded . Procedures None recorded . Surgeries None recorded . Imaging None recorded . Medication Orders Medrol (Alberto) 4 mg tablets in a dose pack 2018 019 INTERFACE [id number], [address] [place], [address], 9 13:17:59 Diflucan 200 mg tablet 2017 018 ep[place]ottano [id number], [address] [place], [address], 10/30/201 8 14:01:51 Patient TargetsNo targets recorded. Patient InstructionsNo instructions recorded. Reason for Referral None Reported. Results Created Date Observation Date Name Description Value Unit Range Abnormal Flag Note LastModifiedBy Organization Detail LastModifiedTime 12/04/19 18 12/03/2017 urina lysis , dipst ick Leukocytes 2+ Not Available [facility] [address] [place], [address], 12/03/2017 12:47:21 12/04/19 18 12/03/2017 urina lysis , dipst ick Nitrite negati ve Not Available [facility] [address] [place] [address], [phone], 12/03/2017 12:47:21 12/04/1912/03/2017 urina lysis , dipst ick Protein Trace Not Available [address], [address], 12/03/2017 12:47:21 12/04/1912/03/2017 urina lysis , dipst ick pH 8.5 Not Available [address], [address], 12/03/2017 12:47:21 12/04/1912/03/2017 urina lysis , dipst ick Blood Negati ve Not Available [address], [address], 12/03/2017 12:47:21 12/04/1912/03/2017 urina lysis , dipst ick Ketone Negati ve Not Available [address], [address], 12/03/2017 12:47:21 12/04/1912/03/2017 urina lysis , dipst ick Glucose Negati ve Not Available [address], [address], 12/03/2017 12:47:21 11/30/1911/30/2017 urina lysis , compl ete appear/color LIGHT YELLO W HAZY Not Available [facility] (Centralized Electronic Ordering - All Locations) Patient Can Go To The Location Of Their Choice, 11/30/2017 01:57:24 11/30/1911/30/2017 urina lysis , compl ete sp. gravity 1.011 (1.002 -1.030 ) Not Available [facility] (Centralized Electronic Ordering - All Locations) Patient Can Go To The Location Of Their Choice, 11/30/2017 01:57:24 11/30/1911/30/2017 urina lysis , compl ete urine pH 7.0 (4.0-8 .0) Not Available [facility] (Centralized Electronic Ordering - All Locations) Patient Can Go To The Location Of Their Choice, 11/30/2017 01:57:24 11/30/1911/30/2017 urina lysis , compl ete urine albumin NEGATI VE (neg) Not Available [facility] (Centralized Electronic Ordering - All Locations) Patient Can Go To The Location Of Their Choice, 11/30/2017 01:57:24 11/30/1911/30/2017 urina lysis , compl ete urine glucose NEGATI VE (neg) Not Available [facility] (Centralized Electronic Ordering - All Locations) Patient Can Go To The Location Of Their Choice, 11/30/2017 01:57:24 11/30/1911/30/2017 urina lysis , compl ete urine ketones NEGATI VE (neg) Not Available [facility] (Centralized Electronic Ordering - All Locations) Patient Can Go To The Location Of Their Choice, 11/30/2017 01:57:24 11/30/1911/30/2017 urina lysis , compl ete urine bilirubin NEGATI VE (neg) Not Available [facility] (Centralized Electronic Ordering - All Locations) Patient Can Go To The Location Of Their Choice, 11/30/2017 01:57:24 11/30/1911/30/2017 urina lysis , compl ete urine hemoglobn 1+ (neg) abnormal Not Available [facility] ([facility] Order[facility] - All Locations) Patient Can Go To The Location Of Their Choice, 11/30/2017 01:57:24 11/30/1911/30/2017 urina lysis , compl ete urine nitrite NEGATI VE (neg) Not Available [facility] (Centralized Electronic Ordering - All Locations) Patient Can Go To The Location Of Their Choice, 11/30/2017 01:57:24 11/30/1911/30/2017 urina lysis , compl ete urine leukocyte 1+ (neg) abnormal Not Available [facility] ([facility] Order[facility] - All Locations) Patient Can Go To The Location Of Their Choice, 11/30/2017 01:57:24 11/30/1911/30/2017 urina lysis , compl ete urobilinogen NORMAL mg/dL (norm) Not Available [facility] - [facility] Locations) Patient Can Go To The Location Of Their Choice, 11/30/2017 01:57:24 11/30/1911/30/2017 urina lysis , compl ete urine WBC's 2 /hpf (0-5) Not Available [facility] ([facility] Ordering - All Locations) Patient Can Go To The Location Of Their Choice, 11/30/2017 01:57:24 11/30/1911/30/2017 urina lysis , compl ete urine RBC's 2 /hpf (<3) Not Available [facility] Order[facility] - All Locations) Patient Can Go To The Location Of Their Choice, 11/30/2017 01:57:24 11/30/1911/30/2017 urina lysis , compl ete bacteria SLIGHT hpf (neg) abnormal Not Available [facility] (Centralized Electronic Ordering - All Locations) Patient Can Go To The Location Of Their Choice, 11/30/2017 01:57:24 11/30/1911/30/2017 urina lysis , compl ete mucus SLIGHT /lpf Not Available [facility] (Centralized Electronic Ordering - All Locations) Patient Can Go To The Location Of Their Choice, 11/30/2017 01:57:24 11/30/1911/30/2017 urina lysis , compl ete squamous epith 10 /hpf Not Available [facility] ([facility] Order[facility] - All Locations) Patient Can Go To The Location Of Their Choice, 11/30/2017 01:57:24 11/30/19 18 11/30/2017 urina lysis , compl ete amorphous crystals SLIGHT /hpf Not Available [facility] ([facility] Order[facility] - All Locations) Patient Can Go To The Location Of Their Choice, [id number] 11/30/2017 01:57:24 11/30/19 18 11/30/2017 CT + NG DNA, PCR, urine urine chlamydia amp probe (neg) NEGAT JALIL No Chlam ydia Trach omati s RNA detec rey in this patie nt's sampl e (REFE RENCE RANGE /NORM AL VALUE : NOT DETEC REY) Note: This test uses trans cript ion- media rey ampli ficat ion metho d to detec t rRNA from C. Trach omati s Not Available [facility] (Centralized Electronic Ordering - All Locations) Patient Can Go To The Location Of Their Choice, [id number] 11/30/2017 11:36:58 11/30/19 18 11/30/2017 CT + NG DNA, PCR, urine urine GC amp probe (neg) NEGAT JALIL No Neiss eria Gonor rhoea e RNA detec rey in this patie nt's sampl e (REFE RENCE RANGE /NORM AL VALUE : NOT DETEC REY) NOTE: This test uses trans cript ion-m ediat ed ampli ficat ion metho d to detec t rRNA from N.Obey orrho eae. A negat jalil resul t does not precl ude infec tion. In the case of a negat jalil urine resul t, testi ng of an endoc ervic al(fe male) or ureth ral (male ) speci men is recom efren d if there is high clini rocael suspi cion of infec tion. Due to very high sensi tivit y of Nucle ic Acid Ampli ficat ion Test, false posit jalil resul ts may occur . There fore, speci men handl ing is extre damian impor tant. In patie nts in whom the disea se is unlik mert, addit ional sampl e for testi ng shoul d be consi dered after an initi al posit jalil resul t. The perfo rmanc e carline cteri stics of this test have not been evalu ated in child krunal. The Aptim a Combo 2 assay is not inten ded for the evalu ation of suspe cted sexua l abuse or for other medic o-leg al indic ation s. The order ing provi praveena shoul d asses s if the patie nt had conse nsual sex witho ut risk of sexua l abuse . [facility] lt [facility] if neede d. Conta ct phone numbe r [phone]. Thera peuti c failu re or succe ss canno t be deter mined with the Aptim a Combo 2 assay since nucle ic acid may persi st follo wing appro priat e antim icrob ial thera py. The Cente rs for Disea se Contr ol and Preve ntion ([facility]) recom mends confi rmato ry retes ting using cultu re or a diffe rent nucle ic acid ampli ficat ion test when posit jalil resul ts occur , if indic ated. Not Available [facility] (Centralized Electronic Ordering - All Locations) Patient Can Go To The Location Of Their Choice, [id number] 11/30/2017 11:36:58 11/30/19 18 11/29/2017 cultu re, urine specimen description URINE Not Available [facility] - [facility] Locations) Patient Can Go To The Location Of Their Choice, [id number] 12/01/2017 08:05:44 11/30/1911/29/2017 cultu re, urine special requests NONE Not Available [facility] ([facility] Ordering - All Locations) Patient Can Go To The Location Of Their Choice, [id number] 12/01/2017 08:05:44 11/30/1912/01/2017 cultu re, urine culture Mixed bacter ial jemma, indica tive of urogen ital contam inatio n. Not Available [facility] (Centralized Electronic Ordering - All Locations) Patient Can Go To The Location Of Their Choice, [id number] 12/01/2017 08:05:44 11/30/1912/01/2017 cultu re, urine report status FINAL 2017 Not Available [facility] (Centralized Electronic Ordering - All Locations) Patient Can Go To The Location Of Their Choice, [id number] 12/01/2017 08:05:44 11/30/19 18 11/29/2017 urina lysis , dipst ick Leukocytes 2+ Not Available [facility] [address] [place], [address], 11/29/2017 12:57:04 11/30/19 18 11/29/2017 urina lysis , dipst ick Nitrite negati ve Not Available [facility] [address] [place], [address], 11/29/2017 12:57:04 11/30/19 18 11/29/2017 urina lysis , dipst ick Protein Trace Not Available [facility] [address] [place], [address], 11/29/2017 12:57:04 11/30/19 18 11/29/2017 urina lysis , dipst ick pH 6.5 Not Available [facility] [address] [place] [address], [address], 11/29/2017 12:57:04 11/30/19 18 11/29/2017 urina lysis , dipst ick Blood Negati ve Not Available [facility] [address] [place] [address], [address], 11/29/2017 12:57:04 11/30/19 18 11/29/2017 urina lysis , dipst ick Ketone Negati ve Not Available [facility] [address] [place] [address], [address], 11/29/2017 12:57:04 11/30/19 18 11/29/2017 urina lysis , dipst ick Glucose Negati ve Not Available [facility] [address] [place] [address], [address], 11/29/2017 12:57:04 12/04/19 18 12/04/2017 bacte rial vagin osis panel , david al celina species, direct probe POSITI VE Not Available [facility] (Centralized Electronic Ordering - All Locations) Patient Can Go To The Location Of Their Choice, 12/04/2017 10:41:18 12/04/1912/04/2017 bacte rial vagin osis panel , vagin al gardnerella vaginalis, direct POSITI VE Not Available [facility] (Centralized Electronic Ordering - All Locations) Patient Can Go To The Location Of Their Choice, 12/04/2017 10:41:18 12/04/1912/04/2017 bacte rial vagin osis panel , vagin al trichomonas vaginalis, direct NEGATI VE Not Available [facility] (Centralized Electronic Ordering - All Locations) Patient Can Go To The Location Of Their Choice, 12/04/2017 10:41:18 12/04/1912/04/2017 urina lysis , compl ete appear/color YELLO W CLOUD Y Not Available [facility] (Centralized Electronic Ordering - All Locations) Patient Can Go To The Location Of Their Choice, 12/04/2017 15:06:49 12/04/1912/04/2017 urina lysis , compl ete sp. gravity 1.010 (1.002 -1.030 ) Not Available [facility] (Centralized Electronic Ordering - All Locations) Patient Can Go To The Location Of Their Choice, 12/04/2017 15:06:49 12/04/1912/04/2017 urina lysis , compl ete urine pH 8.0 (4.0-8 .0) Not Available [facility] (Centralized Electronic Ordering - All Locations) Patient Can Go To The Location Of Their Choice, 12/04/2017 15:06:49 12/04/1912/04/2017 urina lysis , compl ete urine albumin NEGATI VE (neg) Not Available [facility] (Centralized Electronic Ordering - All Locations) Patient Can Go To The Location Of Their Choice, 12/04/2017 15:06:49 12/04/1912/04/2017 urina lysis , compl ete urine glucose NEGATI VE (neg) Not Available [facility] (Centralized Electronic Ordering - All Locations) Patient Can Go To The Location Of Their Choice, 12/04/2017 15:06:49 12/04/1912/04/2017 urina lysis , compl ete urine ketones NEGATI VE (neg) Not Available [facility] (Centralized Electronic Ordering - All Locations) Patient Can Go To The Location Of Their Choice, [facility] 12/04/2017 15:06:49 12/04/1912/04/2017 urina lysis , compl ete urine bilirubin NEGATI VE (neg) Not Available [facility] ([facility]ized Electronic Ordering - All Locations) Patient Can Go To The Location Of Their Choice, [facility] 12/04/2017 15:06:49 12/04/1912/04/2017 urina lysis , compl ete urine hemoglobn NEGATI VE (neg) Not Available [facility] ([facility]ized Electronic Ordering - All Locations) Patient Can Go To The Location Of Their Choice, [id number] 12/04/2017 15:06:49 12/04/1912/04/2017 urina lysis , compl ete urine nitrite NEGATI VE (neg) Not Available [facility] ([facility]ized Electronic Ordering - All Locations) Patient Can Go To The Location Of Their Choice, [facility] 12/04/2017 15:06:49 12/04/1912/04/2017 urina lysis , compl ete urine leukocyte (neg) abnormal TRACE RESUL TS CHECK ED Not Available [facility] ([facility]ized [facility] Ordering - All Locations) Patient Can Go To The Location Of Their Choice, [id number] 12/04/2017 15:06:49 12/04/1912/04/2017 urina lysis , compl ete urobilinogen NORMAL mg/dL (norm) Not Available [facility] - [facility]ations) Patient Can Go To The Location Of Their Choice, [facility] 12/04/2017 15:06:49 12/04/1912/04/2017 urina lysis , compl ete urine WBC's NONE SEEN /hpf (0-5) Not Available [facility] ([facility] Ordering - All Locations) Patient Can Go To The Location Of Their Choice, [id number] 12/04/2017 15:06:49 12/04/1912/04/2017 urina lysis , compl ete urine RBC's NONE SEEN /hpf (<3) Not Available [facility] ([facility]ized Electronic Ordering - All Locations) Patient Can Go To The Location Of Their Choice, [facility] 12/04/2017 15:06:49 12/04/1912/04/2017 urina lysis , compl ete mucus SLIGHT /lpf Not Available [facility] (Centralized Electronic Ordering - All Locations) Patient Can Go To The Location Of Their Choice, [facility] 12/04/2017 15:06:49 12/04/19 18 12/04/2017 urina lysis , compl ete squamous epith 7 /hpf Not Available [facility] Order[facility] - All Locations) Patient Can Go To The Location Of Their Choice, [facility] 12/04/2017 15:06:49 12/04/19 18 12/04/2017 urina lysis , compl ete amorphous crystals SLIGHT /hpf Not Available [facility] Order[facility] - All Locations) Patient Can Go To The Location Of Their Choice, [facility] 12/04/2017 15:06:49 12/04/19 18 12/04/2017 cultu re, urine specimen description URINE Not Available [facility] - [facility] Locations) Patient Can Go To The Location Of Their Choice, [facility] 12/05/2017 07:22:47 12/04/19 18 12/04/2017 cultu re, urine special requests NONE Not Available [facility] Order[facility] - All Locations) Patient Can Go To The Location Of Their Choice, [facility] 12/05/2017 07:22:47 12/04/19 18 12/04/2017 cultu re, urine culture NO GROWTH Not Available [facility] ([facility] Ordering - All Locations) Patient Can Go To The Location Of Their Choice, [facility] 12/05/2017 07:22:47 12/04/19 18 12/05/2017 cultu re, urine report status FINAL 2017 Not Available [facility] ([facility] Ordering - All Locations) Patient Can Go To The Location Of Their Choice, [facility] 12/05/2017 07:22:47 12/04/19 18 12/03/2017 pregn chris test, urine Result negati ve Not Available [facility] [address] [place] [address], [place], [address], 12/03/2017 13:08:58 03/26/20 18 03/26/2018 CBC w/ auto diff WBC 5.9 K/mm3 (4.0-1 1.0) Not Available [facility] ([facility]ized Electronic Ordering - All Locations) Patient Can Go To The Location Of Their Choice, 03/26/2018 20:58:03 03/26/20 18 03/26/2018 CBC w/ auto diff RBC 4.07 M/mm3 (4.20- 5.40) low Not Available [facility] ([facility]ized Electronic Ordering - All Locations) Patient Can Go To The Location Of Their Choice, 03/26/2018 20:58:03 03/26/20 18 03/26/2018 CBC w/ auto diff HGB 12.7 gm/dL (11.7- 15.5) Not Available [facility] ([facility]ized Electronic Ordering - All Locations) Patient Can Go To The Location Of Their Choice, 03/26/2018 20:58:03 03/26/20 18 03/26/2018 CBC w/ auto diff HCT 39.9 % (35.7- 45.8) Not Available [facility] ([facility]ized Electronic Ordering - All Locations) Patient Can Go To The Location Of Their Choice, 03/26/2018 20:58:03 03/26/20 18 03/26/2018 CBC w/ auto diff MCV 98.0 fL (80.0- 100.0) Not Available [facility] ([facility]ized [facility] Ordering - All Locations) Patient Can Go To The Location Of Their Choice, 03/26/2018 20:58:03 03/26/20 18 03/26/2018 CBC w/ auto diff MCH 31.2 pg (27.0- 34.0) Not Available [facility] (Centralized Electronic Ordering - All Locations) Patient Can Go To The Location Of Their Choice, 03/26/2018 20:58:03 03/26/2003/26/2018 CBC w/ auto diff MCHC 31.8 g/dL (33.0- 37.0) low Not Available [facility] ([facility]ized Electronic Ordering - All Locations) Patient Can Go To The Location Of Their Choice, 03/26/2018 20:58:03 03/26/20 18 03/26/2018 CBC w/ auto diff plt 264 K/mm3 (150-4 60) Not Available [facility] (Centralized Electronic Ordering - All Locations) Patient Can Go To The Location Of Their Choice, 03/26/2018 20:58:03 03/26/20 18 03/26/2018 CBC w/ auto diff RDW-SD 44.9 fL (<47.0 ) Not Available [facility] (Centralized Electronic Ordering - All Locations) Patient Can Go To The Location Of Their Choice, 03/26/2018 20:58:03 03/26/20 18 03/26/2018 CBC w/ auto diff MPV 10.7 fL (9.4-1 2.4) Not Available [facility] (Centralized Electronic Ordering - All Locations) Patient Can Go To The Location Of Their Choice, 03/26/2018 20:58:03 03/26/20 18 03/26/2018 CBC w/ auto diff automated NRBC 0.0 #/100 _WBC' s Not Available [facility] (Centralized Electronic Ordering - All Locations) Patient Can Go To The Location Of Their Choice, 03/26/2018 20:58:03 03/26/2003/26/2018 CBC w/ auto diff abs. NRBC 0.0 K/mm3 Not Available [facility] (Centralized Electronic Ordering - All Locations) Patient Can Go To The Location Of Their Choice, 03/26/2018 20:58:03 03/26/20 18 03/26/2018 CBC w/ auto diff neut # 3.9 K/mm3 (1.3-7 .0) Not Available [facility] (Centralized Electronic Ordering - All Locations) Patient Can Go To The Location Of Their Choice, 03/26/2018 20:58:03 03/26/20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 completed Not Available Not Available Not Available terconazole 0.4 % vaginal cream 03/27 completed Not Available Not Available Not Available prednisone 10 mg tablet 5 TABS DAILY X 3 DAYS,4 X 2 DAYS, 3 X 2 DAYS, 2 X 2 DAYS THEN ONE TAB DAILY, SKIP 1 DAY, 1 DAILY 03/27 completed Not Available Not Available Not Available fluoride 1 mg (2.2 mg sodium fluoride) chewable tablet Take 1 tablet every day by oral route. 2009 active QD Not Available Not Available Not Avai lable azithromyci n 250 mg tablet 03/27 completed Not Available Not Available Not Available fluconazole 150 mg tablet TAKE 1 TABLET(S) EVERY DAY BY ORAL ROUTE FOR 1 DAY. 10/05 completed Not Available Not Available Not Available methylpheni date 20 mg tablet 03/27 completed Not Available Not Available Not Available fluconazole 200 mg tablet Take 1 tablet every day by oral route for 3 days. 03/26 completed Not Available Not Available Not Available phenazopyri dine 200 mg tablet 05/14 completed Not Available Not Available Not Available dextroamphe tamine-amph etamine 10 mg tablet TAKE 1 TABLET BY MOUTH EVERY MORNING 03/26 completed Not Available Not Available Not Available penicillin V potassium 500 mg tablet TK 1 T PO BID FOR 10 DAYS active Not Available Not Available No t Available metronidazo le 500 mg tablet Take 1 tablet twice a day by oral route for 7 days. 03/26 completed Not Available Not Available Not Available sulfamethox azole 800 mg-trimetho prim 160 mg tablet TAKE 1 TABLET(S) EVERY 12 HOURS BY ORAL ROUTE FOR 10 DAYS. 03/27 completed Not Available Not Available Not Available amoxicillin 500 mg tablet Take 2 tablets 3 times a day by oral route for 10 days. 11/29 completed Not Available Not Available Not Available oxycodone-a cetaminophe n 5 mg-325 mg tablet 07/06 completed Not Available Not Available Not Available amoxicillin 875 mg tablet TAKE 1 TABLET BY MOUTH TWICE A DAY FOR 10 DAY 06/30 completed Not Available Not Available Not Available cephalexin 500 mg capsule TK 1 C PO Q 8 H FOR 10 DAYS active Not Available Not Available No t Available polymyxin B sulfate 10,000 unit-trimet hoprim 1 mg/mL eye drops Instill 2 drops into both eyes 3 times daily for 5 days 10/05 completed Not Available Not Available Not Available omeprazole 20 mg capsule,del ayed release Take 1 capsule every day by oral route for 30 days. active Not Available Not Available No t Available mupirocin 2 % topical ointment APPLY A SMALL AMOUNT TO THE AFFECTED AREA BY TOPICAL ROUTE 3 TIMES PER DAY 05/14 completed Not Available Not Available Not Available methylpredn isolone 4 mg tablets in a dose pack TAKE 6 TABLETS ON DAY 1 DIRECTED ON PACKAGE AND DECREASE BY 1 TAB EACH DAY FOR A TOTAL OF 6 DAYS active Not Available Not Available No t Available methylpheni date ER 18 mg tablet,exte nded release 24 hr TAKE 1 TABLET BY MOUTH DAILY 05/14 completed Not Available Not Available Not Available escitalopra m 10 mg tablet TAKE 1/2 TABLET BY MOUTH DAILY FOR 7 DAYS THEN TAKE 1 TAB DAILY 03/26 completed Not Available Not Available Not Available nitrofurant oin monohydrate /macrocryst als 100 mg capsule TAKE ONE CAPSULE BY MOUTH EVERY 12 HOURS FOR 7 DAYS 03/26 completed Not Available Not Available Not Available Lutera (28) 0.1 mg-20 mcg tablet TK 1 T PO QD active Not Available Not Available No t Available Judit 14 mcg/24 hr (up to 3 years) 13.5 mg intrauterin e device FOR VAGINAL INSERTION BY HEALTHCAR E PROVIDER active Not Available Not Available No t Available Vitals Date Recorded Body height Body mass index (BMI) Body mass index (BMI) [Percentile] Per age and sex Body weight Systolic And Diastolic Provider Name and Address Organization Details Last Updated DateTime 03/26/2018 151.77 cm 20.5 kg/m2 35 % 42140.6 1 g 98/58 mm[Hg] Layne bueno CGemmaMGemmaAGemma [facility] 8 14:01:24 Social History Question Answer Notes LastModified by Organizat ion Details LastModified Time Tobacco Smoking Status Never Smoker Susanna goddard, [facility] 09/30/2012 15:01:29 Hard Of Hearing Or Deaf In One Or Both Ears? No Information not available 08/12/2015 Legally Blind In One Or Both Eyes? No Information not available 08/12/2015 Parent's Marital Status [email or web address] Information not available 04/01/2011 Home Situation Mother Administration Information not available 10/22/2014 Siblings Names And Birthdates Sunday (M) 12/24/00 [email or web address] Information not available 04/01/2011 Parent's Name Debi Information not available 04/01/2011 Parent's Name Hema --sees Dad Regularly [employer]vertising Agency Manager [email or web address] Information not available 04/01/2011 What Was The Date Of Your Most Recent Tobacco Screening? 03/26/2018 Information not available 12/19/2018 Are You Passively Exposed To Smoke? Yes --mom Smokes Outside [email or web address] Information not available 11/25/2014 How Much Tobacco Do You Smoke? No Information not available 01/03/2016 Sex: Unknown Functional Status None recorded. Mental Status None recorded. Family History Relationship Description Onset Age of this Age Resolved Age Notes LastModified by Organization Details LastModified Time Mother Malignant neoplastic disease previo usly record ed as Cancer klisien Not available 08/12/2015 09:54:24 Mother Allergy previo usly record ed as Allerg ies klismonroe Not available 08/12/2015 09:54:24 Father No current problems or disability klisien Not available 08/11 09:54:24 Notes:Updated verbally 05/14 Medical History Condition Response CARDIAC PROBLEMS N ALLERGIC AND IMMUNOLOGIC PROBLEMS Y DEVELOPMENTAL/ BEHAVIORAL PROBLEMS Y GENITOURINARY N HOSPITALIZATIONS Y ACCIDENTS INJURIES Y VISION IMPAIRMENT Y ENDOCRINE PROBLEMS/DIABETES Y GI PROBLEMS/CONSTIPATION Y OPHTHALMOLOGIC PROBLEMS N ORTHOPEDIC PROBLEMS N CHICKEN POX / VARICELLA HISTORY or POSIT JALIL TITER N HEARING IMPAIRMENT N MUSCLE/ JOINT/ BONE PROBLEMS N RHEUMATOLOGIC PROBLEMS N DERMATOLOGIC PROBLEMS/ECZEMA N ENT PROBLEMS/OTITIS MEDIA/ CHRONIC N COST CONTROLLER PROBLEMS N HEMATOLOGIC /ONCOLOGIC PROBLEMS N RENAL PROBLEMS Y OTHER N NEUROLOGIC/ SEIZURES OR CONVULSIONS N ADHD N HEADACHES/MIGRAINES/DIZZINESS N CONGENITAL AND GENETIC PROBLEMS N INFECTIOUS DISEASE PROBLEMS N PUMONARY PROBLEMS/ ASTHMA N PSYCH PROBLEMS Y Gynecological History Statement/Question Response IUD Date of LMP 11/19/2017 Age at onset of periods 10 yrs 12/17/2015 Obstetrics History GPAL:G 0 P 0 0 0 0 Immunizations Vaccine Type Date Status Note Provider Nam e and Address Organization Details Recorded Time varicella 2 completed Not Available [facility] 06/14/2019 02:33:14 Influenza, split virus, trivalent, PF 3 completed Not Available [facility] 06/14/2019 02:35:29 Hib, unspecified formulation 9 completed CARLOS EDUARDO [facility] 05/09/2011 10:02:29 IPV 0 completed CARLOS EDUARDO [facility] 05/09/2011 10:02:29 DTaP, unspecified formulation 9 CARLOS EDUARDO [facility] 05/09/2011 10:02:29 DTaP, unspecified formulation 9 CARLOS EDUARDO [facility] 05/09/2011 10:02:29 Hep B, unspecified formulation 9 CARLOS EDUARDO [facility] 05/09/2011 10:02:29 DTaP, unspecified formulation 9 completed Glenis Burno null, [facility] 05/09/2011 10:02:29 Hib, unspecified formulation 9 completed Glenis Burno null, [facility] 05/09/2011 10:02:29 IPV 9 completed Glenis Burno null, [facility] 05/09/2011 10:02:29 DTaP, unspecified formulation 0 completed Glenis Burno null, [facility] 05/09/2011 10:02:29 MMR 0 completed Demetria Ibrahim MD [address] [place], [address], [facility] 03/27/2017 12:38:38 Hib, unspecified formulation 9 completed Glenis Burno null, [facility] 05/09/2011 10:02:29 Hib, unspecified formulation 0 completed Glenis Burno null, [facility] 05/09/2011 10:02:29 Hep B, unspecified formulation 0 completed Glenis Burno null, [facility] 05/09/2011 10:02:29 IPV 4 completed Glenis Burno null, [facility] 05/09/2011 10:02:29 DTaP, unspecified formulation 4 completed Glenis Burno null, [facility] 05/09/2011 10:02:29 Hep B, unspecified formulation 9 completed Glenis Burno null, [facility] 05/09/2011 10:02:29 MMR 3 completed Demetria Ibrahim MD [address] [place] [address], [phone], [facility] 03/27/2017 12:38:38 IPV 9 completed Glenis Burno null, [facility] 05/09/2011 10:02:29 varicella 0 completed Glenis Burno null, [facility] 05/09/2011 10:02:51 meningococcal MCV4P 5 completed Not Available [facility] 06/14/2019 02:36:07 HPV9 5 completed Not Available [facility] 06/14/2019 02:36:07 HPV9 5 completed Not Available [facility] 06/14/2019 02:36:15 HPV9 6 completed Not Available [facility] 06/14/2019 02:36:54 meningococcal B, OMV 8 completed Not Available [facility] 06/14/2019 02:38:50 meningococcal MCV4P 0 completed Not Available [facility] 06/14/2019 02:33:24 Tdap 0 completed Not Available [facility] 06/14/2019 02:33:42 Past Encounters Encounter ID Performer Location Encounter Start Date Encounter Closed Date Diagnosis/Indication Diagnosis SNOMED-CT Code Diagnosis ICD10 Code Diagnosis IMO Codes Diagnosis Note [id number] Stephen Pineda MD [facility] [address] [place] [id number] 4 04/29/2007 11:44:49 04/29/2007 12:27:28 [id number] Stephen Pineda MD [facility] [address] [place] [id number] 4 05/01/2007 10:06:13 05/01/2007 11:09:34 [id number] Galindo Smith MD [address] [address] 07/13/2007 13:28:56 07/13/2007 14:15:43 [id number] Yasmeen Segura PNP, [employer], PhD [facility] [address] [place] [id number] 4 10/08/2007 14:48:26 02/04/2009 01:23:50 [id number] Galindo Reyes MD [facility] [address] [place] [id number] 4 10/31/2007 12:37:59 02/04/2009 01:23:50 [id number] Galindo Reyes MD [facility] [address] [place] [id number] 4 11/17/2008 14:10:01 11/17/2008 14:57:00 [id number] Stephen Pineda MD [facility] [address] [place] [address] 01/18/2010 12:58:36 01/18/2010 13:54:44 [id number] Galindo Reyes MD [facility] [address] [place] [address] 02/09/2010 09:12:24 02/09/2010 11:59:11 [id number] Hema Delaney MD [facility] [address] [place] [address] 03/07/2010 12:51:30 03/07/2010 13:58:02 [id number] Demetria Ibrahim MD [facility] [address] [place] [address] 05/12/2010 16:40:34 05/12/2010 17:39:15 [id number] Demetria Ibrahim MD [facility] [address] [place] [id number] 4 10/18/2010 15:42:42 10/18/2010 16:04:27 [id number] Demetria Ibrahim MD [facility] [address] [place] [address] 11/11/2010 11:22:26 11/11/2010 12:25:07 [id number] Demetria Ibrahim MD [facility] [address] [place] [address] 05/11/2011 14:48:42 05/11/2011 16:52:03 [id number] Hema Delaney MD [facility] [address] [place] [address] 01/19/2012 14:23:13 01/19/2012 16:25:07 [id number] Demetria Ibrahim MD [facility] [address] [place] [address] 04/15/2012 16:03:17 04/15/2012 16:48:43 [id number] Demetria Ibrahim MD [facility] [address] [place] [address] 09/30/2012 14:53:08 09/30/2012 16:08:02 [id number] Demetria Ibrahim MD [address] [address] 10/22/2013 15:01:04 10/22/2013 17:07:34 Well child 705707004 Gastroesop hageal reflux disease 191860723 Headache 89476757 Hypertroph y of toenail 57674928 [id number] Hema Delaney MD [address] [address] 4 12/11/2013 11:40:14 12/11/2013 12:33:05 Streptococcal sore throat 85382971 [id number] Demetria Ibrahim MD [address] [address] 4 10/21/2014 09:33:14 10/21/2014 10:50:44 Acute pharyngitis 257958369 [id number] Demetria Ibrahim MD [address] [address] 4 10/22/2014 14:37:01 10/22/2014 15:53:28 Streptococcal sore throat 38632816 [id number] Demetria Ibrahim MD [address] [address] 4 11/25/2014 14:55:25 11/25/2014 16:51:02 Well child 714794779 Local infe ction of wound 90023138 Height below average 734543254 Parent-child problem 97636392 Academic problem 7477813 [id number] Demetria Ibrahim MD [address] [address] 01/27/2015 15:43:21 01/27/2015 16:53:44 Academic problem 0497898 Administra tion of viral vaccine 19398081 Parent-child problem 14332284 [id number] Evi Mosquera MD [address] [address] 4 03/02/2015 10:19:36 03/02/2015 13:02:39 Acute pharyngitis 127282070 J02.9 [id number] Demetria Ibrahim MD [address] [address] 4 04/12/2015 15:17:01 04/12/2015 17:03:24 Backache 760337688 M54.9 Fever 754807486 R50.9 Altered mental status 41 5618348 R41.82 [id number] Demetria Ibrahim MD [address] [address] 4 06/02/2015 10:24:38 06/02/2015 12:57:51 Dysuria 23629045 R30.0 [id number] Demetria Ibrahim MD [address] [address] 4 07/28/2015 14:51:50 07/28/2015 15:42:13 Dysuria 26319260 R30.0 [id number] Demetria Ibrahim MD [address] [address] 4 08/12/2015 09:42:22 08/12/2015 16:40:46 Acute pharyngitis 412109791 J02.9 [id number] Demetria Ibrahim MD [address] [address] 4 01/03/2016 14:59:38 01/03/2016 16:12:18 Well child 224485434 Z00.129 Active or passive immunization 944413015 Z23 Polyuria 69902093 R35.8 Feeling stressed 2991266 06 Z73.3 Developmen adi academic disorder 2862579 F81.9 [id number] Demetria Ibrahim MD [address] [address] 4 03/22/2016 08:50:33 03/22/2016 10:45:22 Acute pharyngitis 451738552 J02.9 Acute sinusitis 14594900 J01.90 Lymphadenopathy 12221522 R59.0 [id number] Demetria Ibrahim MD [address] [address] 4 03/24/2016 09:23:57 03/24/2016 13:08:20 Acute pharyngitis 703178205 J02.9 Tonsillitis 67210392 J03 .90 Acute conjunctivitis 537 92277 H10.33 Lymphadenopathy 52338927 R59.0 Acute sinusitis 05431933 J01.90 [id number] Demetria Ibrahim MD [address] [address] 4 06/30/2016 10:32:03 06/30/2016 13:02:31 Acute pharyngitis 516940925 J02.9 Upper resp iratory infection 73388581 J06.9 [id number] Daniel Galarza MD [address] 4 07/17/2016 13:29:10 07/17/2016 14:44:10 Loss of hair 346345871 L65.9 Likely localized reaction to using straight bleach and dyes. No focal areas of allopecia. No other s/s of thyroid dysfunctio n but will check screening labs. Fatigue 42047883 R53.83 Abnormal weight loss 267 907443 R63.4 Weight down ~8 lbs in the last 2 years but BMI at 50%, no restrictiv e behaviors and no plans to lose more weight. Actually sounds like she has a relatively healthy diet - discussed no protein shakes but healthy sources of protein and iron. Will check iron labs and celiac panel while getting labs Mood swings 54036523 R45 .86 Difficult relationsh ip with mother, limited with father. No SI or self harm. Encouraged to restart therapy/co unseling - pt to consider. [id number] Evi Mosquera MD [address] [address] 4 09/06/2016 14:22:59 09/06/2016 14:58:58 Acute pharyngitis 372649948 J02.9 Acute sinusitis 42645471 J01.90 [id number] Demetria Ibrahim MD [address] [address] 4 11/29/2016 13:52:16 11/29/2016 14:45:35 Unable to concentrate 95308514 R41.840 Anxiety 28684192 F41.9 Developmen adi academic disorder 7814882 F81.9 [id number] Demetria Ibrahim MD [address] 4 12/18/2016 13:33:56 12/18/2016 14:01:25 Contact dermatitis 45207152 L25.9 [id number] Demetria Ibrahim MD [address] [address] 4 03/27/2017 10:14:20 03/27/2017 13:10:57 Dysuria 15953871 R30.0 Abdominal pain 30020912 R10.9 Loss of hair 261549169 L 65.9 [id number] Demetria Ibrahim MD [address] [address] 4 05/14/2017 09:48:54 05/14/2017 13:18:23 Adult health examination 002372625 Z00.01 Normal bod y mass index 70882791 Z68.20 Breast lump 32720351 N63 .0 Unable to concentrate 60 888564 R41.840 Developmen adi academic disorder 9726827 F81.9 Kidney stone 25945387 N2 0.0 Loss of hair 531596054 L 65.9 Anxiety 32102849 F41.9 [id number] Pau Ortiz MD [address] [address] 07/06/2017 15:42:35 07/06/2017 16:34:25 Dysuria 42202131 R30.0 will treat for UTI presumptiv mert- if neg culture need to call patient and let her know to d/c medication pre post coital voidHas IUD- Vaginitis and vulvovaginitis 768423583 N77.1 r/o BV, yeast,tric h Urinary tr act infectious disease 58037075 N39.0 cranberry juice-UTI likely r/o STI cranberry juice, lots of fluids, pre and post coital void call the office in 2 days for result- pt cell R/o candidial vaginitis or BV- Affirm test sent f/u PRN fever or worsening sx [id number] Demetria Ibrahim MD [address] [address] 10/05/2017 14:07:52 10/05/2017 16:02:16 Concussion with loss of consciousness 92314080 S06.0X9A Fracture of skull 079592 04 S02.91XA Hematotympanum 405262728 H73.899 [id number] Hema Delaney MD [address] [address] 4 11/29/2017 12:49:36 11/29/2017 13:33:42 Dysuria 87445309 R30.0 [id number] Demetria Ibrahim MD [address] [address] 4 12/03/2017 12:43:22 12/03/2017 13:37:06 Dysuria 09836400 R30.0 Candidiasis of vagina 72 458654 B37.3 Increased frequency of urination 691035626 R35.0 [id number] Demetria Ibrahim MD [address] [address] 4 01/30/2018 08:52:19 01/30/2018 08:59:36 Active or passive immunization 887540358 Z23 [id number] Demetria Ibrahim MD [address] [address] 4 03/26/2018 13:46:09 03/26/2018 15:09:24 Malaise and fatigue 840665128 R53.81 R53.83 Pain of joint 30401657 M 25.50 Irregular periods 717418 07 N92.6 Adjustment disorder with depressed mood 07357101 F43.21 Abnormal weight loss 267 516440 R63.4 Complainin g of hair loss 379268360 R23.8 [id number] Demetria Ibrahim MD [address] [address] 12/25/2018 12:42:21 12/25/2018 14:21:34 Contact dermatitis caused by urushiol from [facility] sina 860047578 L25.5 Fatigue 89861699 R53.83 Numbness 03142048 R20.0 Abdominal pain 95214784 R10.9 Health Concerns Section Related Observation LastModified by Organization Detai ls LastModified Time None Recorded Concern Status LastModified by Organization Details LastModified Time None Recorded Advance Directives Directive None Recorded Payers Insurance Date Sequence Insurance Name Policy Number Policy Velazquez Covered Member ID Velazquez Member ID Guarantor Name 01/06/2021 1 [facility] - [employer] 7H (HMO) [id number] Hema Meza [id number] Debi Susana Notes Date Note Type Note Provider Name and Address Organization Details Recorded Time 11/29/2017 text/html RS Sick Visit Narrative HistoryReported by PatientC/O dysuria, polyuria x 2 weeks. No hematuria noted. Has intermittent abdominal pain x 1 week. No back pain. Is sexually active. Has IUD ( Judit ). Is not using protection. Afebrile. No N/V/D. Appetite and fluid intake nl. Sleeping nl. Using AZO x 2 weeks. Last dose x last night.no fever. Hema Delaney MD [address] [place] [address], , [facility] 11/29/2017 13:33:15 12/03/2017 text/html RS Sick Visit Narrative HistoryReported by PatientPt here for dysuria, polyuria x 3 weeks. Was seen x 4 days ago for same sx. No infection seen on UA and UC when sent to lab. Per pt, polyuria and dysuria have worsened since last seen. No hematuria noted. Has thick white vaginal discharge with vaginal itching and irritation. Currently sexually active with 1 partner- not using protection. Still with intermittent abdominal pain. Denies back pain. Was in [place] over the weekend swimming - was in bathing suit most of the weekend. Previously using AZO - last dose x 4 days ago. No other OTC medications used. LMP 11/19/17ROS as noted in the HPI Demetria Ibrahim MD [address] [place] [address], , [facility] 12/03/2017 13:34:53 03/26/2018 text/html RS Sick Visit Narrative HistoryReported by PatientHere for consultation for anxiety and hair loss x 4 months. + Fatigue and joint pain x 2-3 months. Was dancing 5 days a week and now difficult to keep up. Joint pain in bilateral arms and legs. Afebrile. No N/V/D. Appetite and fluid intake nl. Sleeping nl. No OTC meds. No rashes. Jts never swollen or red.No night sweats/chronic cough/rashes/v/d/c/dy suria except when kidney stone bothering her. NO tick bites. Hair loss is general and only top of head and not in patches.Was 96 lbs few wks ago, felt she was eating ok but had lost weight so inc consumption and has been able to gain. Stress level 3/5 so not awful but was worse few wks ago. New job was one mth but hair was falling out 3 mths ago.Menses - irregular for several mths, did not have for few mths, then LMP one wk ago and lasted 7 d and usually 3 d, bad cramps, last SA was with female and has IUD also. Explorig having relationship with woman but may still interested in men too. Family aware and somewhat supportive but not fully. Working in [employer]. Had therapist in past but not now. Does feel she needs to talk to someone but no SI/HI and not depressed - just sadder than she would like to be. Partner is good support for her.Jt pains area more leg pains and arms. Diet - trying to not eat meat mths ago, Biotin once a day, no multivitamin, protein mainly soy /beans/dairy, lots nuts, no eggs regularly; meals typically have protein source at least 2/3 meals per day;Hair - minimal treatments, no blow dry. Does have green hair today but this is vegetable stain and not bad for her hair she believes.Has Judit progestin IUD x 1 yr Demetria Ibrahim MD [address] [place] [address], [id number], [facility] 03/26/2018 15:18:27 12/25/2018 text/html RS Sick Visit Narrative HistoryReported by PatientRed raised rash first noticed on buttocks 3 days ago, spread around buttocks and thighs and now in vaginal area and on neck. +Itchy. +Painful. No drainage noticed. +Exposure to poison sina, pt states she had wiped with a leaf 3 days ago. Cortizone applied and drinking licorice root with temporary relief, and then the itching will return. Having problems urinating but can - just has to focus. Pt. also states for the past month she has been gassy and having pressure in lower abdomen on and off. No V/D. Pt. states she also has had muscle weakness and numbness in neck and lower back and bilateral upper thighs anteriorly only and has lower energy level. No trouble sleeping but very stressed. Sxs of abd and neck and thighs come/go. No trauma/falling/fevers /reflux sxs. Stress is high -- living at home and wishes she could afford to move out. Worried about what she will do with her life and wants to go to herbal school that is also for yoga, has to pay for this herself so trying to save $. Her options for this school are [employer]. Working two jobs and needs car to get to them. Having trouble even paying for her car insurance. Stopped smoking mj two mths ago since was making her feel worse. 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 No other drugs. Takes iron and occ B12. Just started seeing therapist Jacey 2 wks ago - once a wk but has not seen change yet. Wants to see psychiatry but called for appt last week (used psychology today web site) and no calls back yet. Took Escitalopram briefly in past but stopped since felt better. Has also been very tired.ROS as noted in the HPI Demetria Ibrahim MD [address] [facility], [place], [id number], [facility] - [facility] 12/25/2018 14:19:03 OBGyn Episode No OBEpisode recorded.
== END 2025-04-08 15:38 | disposition home or self-care (01) ==
LOC: HO.HMCFM 14:56
PROVIDERS: PCP Physician Assistant; Visit Provider Physician Assistant
DX: F41.8 Other specified anxiety disorders (principal); N20.0 Calculus of kidney; R59.0 Localized enlarged lymph nodes; Z23 Encounter for immunization